=== PATIENT | female | born 1985 | race Caucasian/White ===

== ENCOUNTER 2017-05-06 07:16 | Day surgery (SDC) | payer BC ==
[~2017-05-06] VITALS: Ht 170.2 cm; Wt 133.1 kg
[2017-05-06] VITALS (10 sets, daily range): BP systolic 103–133; BP diastolic 56–73; PULSE 63–77; RESP 16–24; Ht 170.2 cm; Wt 133.1 kg
[~2017-05-06 07:16] MED LIST: CEFAZOLIN 2 GM/50 ML (PMX) 50 ML IVPB ONE; MECL12.574 PO; ONDA8TAB14 PO; SOD CHLORIDE 0.9% 1,000 ML IV ONE; SUCCINYLCHOLINE CHLORIDE 100 MG/5 ML SYG IV ONE
[2017-05-06] MEDS ORDERED: CHOL100062 PO (07:55)
[2017-05-06] MEDS ORDERED: CITA-104 PO (07:55)
[2017-05-06] MEDS ORDERED: BUPIVACAINE 0.25% (MPF) 30 ML INJ ONE (08:47)
[2017-05-06] MEDS ORDERED: OMEG-135 PO (08:50)
[2017-05-06] MEDS ORDERED: NORG1TAB14 PO (08:50)
[2017-05-06] MEDS ORDERED: FENTAnyl 50 MCG/ML VIAL ONE ×2 (09:02→09:27)
[2017-05-06] MEDS ORDERED: GLYCOPYRROLATE 0.4 MG INJ ONE (09:02)
[2017-05-06] MEDS ORDERED: MIDAZOLAM 1 MG/ML 2 ML INJ ONE (09:02)
[2017-05-06] MEDS ORDERED: ROCURONIUM 50 MG INJ ONE (09:02)
[2017-05-06] MEDS ORDERED: ONDANSETRON 4 MG INJ ONE (09:02)
[2017-05-06] MEDS ORDERED: PROPOFOL 20 ML ONE (09:02)
[2017-05-06] MEDS ORDERED: DEXAMETHASONE 4 MG/ML 1 ML INJ ONE (09:02)
[2017-05-06] MEDS ORDERED: CEFAZOLIN 1 GM INJ ONE (09:02)
[2017-05-06] MEDS ORDERED: NEOSTIGMINE 3 MG/3 ML SYRINGE ONE (09:02)
[2017-05-06] MEDS ORDERED: FAMOTIDINE 20 MG INJ ONE (09:24)
[2017-05-06] MEDS ORDERED: IPRATROPIUM (NEB) 0.5 MG/2.5 ML AMP HHN PRN ×2 (09:30)
[2017-05-06] MEDS ORDERED: MIDAZOLAM 1 MG/ML 2 ML INJ IV PRN ×2 (09:30)
[2017-05-06] MEDS ORDERED: DIPHENHYDRAMINE 50 MG INJ IV PRN ×2 (09:30)
[2017-05-06] MEDS ORDERED: FENTAnyl 50 MCG/ML VIAL IV PRN ×5 (09:30)
[2017-05-06] MEDS ORDERED: EPHEDrine SULFATE 50 MG/5 ML SYG IV PRN ×2 (09:30)
[2017-05-06] MEDS ORDERED: LABETALOL HCL 20MG INJ IV PRN ×2 (09:30)
[2017-05-06] MEDS ORDERED: hydrALAzine 20 MG INJ IV PRN ×2 (09:30)
[2017-05-06] MEDS ORDERED: ALBUTEROL 0.083% (NEB) 2.5 MG/3 ML AMP HHN PRN ×2 (09:30)
[2017-05-06] MEDS ORDERED: HYDROmorphONE (0.2 MG/ML) 10ML SYG IV PRN ×6 (09:30)
[2017-05-06] MEDS ORDERED: TRIMETHOBENZAMIDE 100 MG/ML VIAL IM PRN ×2 (09:30)
[2017-05-06] MEDS ORDERED: ONDANSETRON 4 MG INJ IV PRN ×2 (09:30)
[2017-05-06] MEDS ORDERED: MEPERIDINE 25 MG INJ IV PRN ×2 (09:30)
[2017-05-06] MEDS ORDERED: OXYCODONE/ACETAMINOPHEN (5/325) TAB PO PRN ×4 (09:30)
--- NOTE | 2017-05-06 09:39 | SIPON ---
Date/Time of Note Date/Time of Note DATE: 05/06/17 TIME: 09:34 Operative Report Preoperative Diagnosis left axillary mass Postoperative Diagnosis left axillary mass Operation/Procedure Performed left axillary mass excision 7 cm mass 7 cm incision localized adjacent tissue transfer with the use of skin flaps 14 sq cm defect therapeutic injection subcutaneous local anesthesia Surgeon see signature line vet assistant none Anesthesia: general Estimated blood loss: 0 - 10 ml's Transfusion Required none Specimen left axillary mass Grafts/Implants none Complications none Ramesh HERNANDEZ May 06, 2017 09:38
[2017-05-06] MEDS: FENTAnyl 50 MCG/ML VIAL IV PRN ×2 (09:57→10:05)
[2017-05-06] MEDS ORDERED: HYDROCODONE/APAP (5/325) TAB PO ONE (10:00)
--- NOTE | 2017-05-06 10:27 | OPR ---
DATE OF OPERATION: 05/06/2017 INDICATION: This is a 32-year-old female with a left axillary mass. She requests surgical excision. Risks, alternatives, benefits, and personnel were discussed with the patient. Patient expressed understanding, consents to the operation. PREOPERATIVE DIAGNOSIS: Left axillary mass. POSTOPERATIVE DIAGNOSIS: Left axillary mass. OPERATIONS: 1. Excision of left axillary mass with 7-cm size incision and 7 x 2-cm size mass. 2. Localized adjacent tissue transfer with use of skin flaps. 3. Therapeutic subcutaneous local anesthesia injection. SURGEON: Cheryl Ventura MD SPECIMEN: Left axillary mass. COMPLICATIONS: None. ANESTHESIA: General. EBL: 10 mL PROCEDURE: Patient is taken to the OR and prepped and draped in the usual sterile fashion. Surgical timeout was performed. IV antibiotics were given. Elliptical incision was made with a 15- blade. Dissection cautery circumferentially used to excise the axillary mass. There was good hemostasis. Due to the large tissue defect, localized adjacent tissue transfer with use of compressive Profore. Multilayer closure with interrupted 3-0 Vicryl and skin rio. Therapeutic subcutaneous local anesthesia was injected throughout the incision site. Dry dressings were applied. Dictated By: Guille Maki /[email or web address] /Document#: [id number]
== END 2017-05-06 12:05 | disposition home or self-care (01) ==
LOC: SDS 07:16
PROVIDERS: ATTEND Surgery
DX: R22.32 Localized swelling, mass and lump, left upper limb (principal)
CPT/HCPCS: 11406; 13132; 84703; 88307; J0690; J1100; J2250; J2405; J3010; Z7512; Z7610; J2710; J7999